=== PATIENT | female | born 1960 | race Caucasian/White ===

== ENCOUNTER 2019-07-18 16:22 | Emergency (ER) | payer OTHER ==
[~2019-07-18] VITALS: Ht 160 cm; Wt 86.2 kg
[2019-07-18] MEDS ORDERED: PERCOCET 5-3251 EACH PO (16:41)
[2019-07-18] MEDS ORDERED: ZOFRAN ODT4 MG SUBLING (16:41)
[2019-07-18 17:30] VITALS: BP 158/103
== END 2019-07-18 17:31 | disposition home or self-care (01) ==
LOC: M.ERS 16:22
DX: S23.41XA Sprain of ribs, initial encounter (principal); X58.XXXA Exposure to other specified factors, initial encounter; Y93.89 Activity, other specified; Y92.89 Other specified places as the place of occurrence of the external cause; Y99.8 Other external cause status